=== PATIENT | female | born 1970 | race American Indian/Alaskan Native ===

== ENCOUNTER 2017-05-29 22:57 | Emergency (ER) | payer BC ==
[2017-05-29 23:09] VITALS: TEMP 98.8
--- NOTE | 2017-05-29 23:26 | C.PDOC ---
History Of Present Illness Patient states that she has been having mild headaches frequently. She was seen by her primary provider 3 months ago and her blood pressure was elevated. He advised weight loss and monitoring the BP. She occasionally wakes in the morning with slight blurring of her vision and intermittently has a generalized headache. She denies associated chest pain or shortness of breath. Time Seen by Provider: 05/29/17 23:18 Chief Complaint (Nursing): High Blood Pressure History Per: Patient History/Exam Limitations: no limitations Onset/Duration Of Symptoms: Days, Intermittent Episodes Current Symptoms Are (Timing): Still Present Associated Symptoms: Blurred Vision (occasional mild), Headache (intermittent). denies: Chest Pain, Dyspnea, Dizziness Exacerbating Factor(s): Pos: None Past Medical History Vital Signs: Last Vital Signs Temp 98.8 F 05/29/17 23:04 Pulse 87 05/29/17 23:04 Resp 20 05/29/17 23:04 BP 196/114 H 05/29/17 23:04 Pulse Ox 100 05/29/17 23:04 - Medical History PMH: HTN Surgical History: Cholecystectomy Other Surgeries: Abdominal hernia with mesh - [facility] Procedures ARTIF RUPT MEMBRANES NEC (11/06/02) BILAT ENDOSC DIVIS TUBE (03/30/06) MANUAL ASSIST DELIV NEC (11/06/02) Family History: States: Diabetes - Social History Hx Tobacco Use: No Hx Alcohol Use: No Hx Substance Use: No - Immunization History Hx Tetanus Toxoid Vaccination: No Hx Influenza Vaccination: No Hx Pneumococcal Vaccination: No Review Of Systems Except As Marked, All Systems Reviewed And Found Negative. Neurological: Positive for: Headache Physical Exam - Physical Exam Appears: Well, No Acute Distress Skin: Normal Color, Warm, Dry Head: Atraumatic Eye(s): bilateral: Normal Inspection, PERRL, EOMI Oral Mucosa: Moist Neck: Normal, Supple Lymphatic: No Adenopathy Chest: Symmetrical Cardiovascular: Rhythm Regular, No Edema, No JVD Respiratory: Normal Breath Sounds, No Rales Gastrointestinal/Abdominal: Normal Exam, Soft, No Tenderness, No Distention Pulses: Left Carotid: Normal, Right Carotid: Normal Neurological/Psych: Oriented x3, Normal Speech, Normal Cognition, Normal Cranial Nerves, Normal Motor, Normal Sensation ED Course And Treatment O2 Sat by Pulse Oximetry: 100 Progress Note: Patient treated with Clonidine 0.2mg po Disposition - Disposition Disposition Time: 23:30 Condition: STABLE Forms: [employer] ([place]) - Clinical Impression Clinical Impression: Hypertension Physician Patient Turnover Patient Signed Over To: Kush Valles Handoff Comments: pending labs and decreased BP
[2017-05-29 23:36] LABS: BASO # 0.2 K/uL (0.0-0.2); BASO % 1.4 % (0.0-2.0); EOS # 0.6 K/uL (0.0-0.7); EOS % 4.2 % (0.0-4.0); HEMATOCRIT 34.8 % (34.0-47.0); LYMPH # 4.5 K/uL (1.0-4.3); LYMPH % 33.8 % (20.0-40.0); MEAN CELL VOLUME 84.5 fL (81.0-99.0); MEAN CORPUSCULAR HEMOGLOBIN 28.2 pg (27.0-31.0); MEAN CORPUSCULAR HGB CONC 33.4 g/dL (33.0-37.0); MEAN PLATELET VOLUME 8.4 fL (7.2-11.7); MONO % 7.5 % (0.0-10.0); NRBC % 0.1 % (0.0-2.0); RED CELL DISTRIBUTION WIDTH 13.7 % (11.5-14.5); WHITE BLOOD COUNT 13.3 K/uL (4.8-10.8)
[2017-05-29 23:44] LABS: CHLORIDE 104 mmol/L (98-107)
[2017-05-29 23:45] LABS: POTASSIUM 3.7 mmol/L (3.6-5.2); SODIUM 137 mmol/L (132-148)
[2017-05-29 23:48] LABS: ALKALINE PHOSPHATASE 70 U/L (38-126); ALT/SGPT 25 U/L (9-52); AST/SGOT 27 U/L (14-36); BILIRUBIN,TOTAL 0.6 mg/dL (0.2-1.3); BLOOD UREA NITROGEN 12 mg/dL (7-17); CALCIUM 8.5 mg/dl (8.6-10.4); CARBON DIOXIDE 20 mmol/L (22-30); GFR AFRICAN-AMERICAN > 60; GLUCOSE,RANDOM 101 mg/dL (65-105); TOTAL PROTEIN 7.6 g/dL (6.3-8.3)
[2017-05-30 00:14] VITALS: BP 160/88; PULSE 62; RESP 17; O2SAT 99
--- NOTE | 2017-06-01 11:53 | CARD ---
APPROVED REPORT EKG Measurement Heart [id number] NM [id number] <Conclusion> Normal sinus rhythm Normal ECG
== END 2017-05-30 00:14 | disposition home or self-care (01) ==
LOC: C.ER 22:57
DX: I10 Essential (primary) hypertension (principal)